=== PATIENT | male | born 1955 | race Caucasian/White ===

== ENCOUNTER 2018-09-26 16:23 | Inpatient (IN) | payer MEDICARE, MEDICAID ==
[~2018-09-26] VITALS: Ht 185.4 cm; Wt 102.1 kg
--- NOTE | ~2018-09-26 | WRIGHTHP ---
[place], [place] PATIENT HISTORY AND PHYSICAL EXAM NAME: PRECIOUS PIERSON UNIT #: [id number] ROOM: 311 DOCTOR: TANIA TELLO MD BIRTHDATE: [birth year] DOS: 09/27/2018 CHIEF COMPLAINT: "You are going to have to check with the attorneys and all that, I don't know what happened." HISTORY OF PRESENT ILLNESS: This is a 63-year-old white male who was sent here to the Behavioral Health Care Unit on an involuntary basis from [facility]. The patient had presented there with EMS and police after he was found wandering, his neighborhood very confused and dazed. He was talking out of his head, stating that a helicopter had come to get him, he was not making much sense. Some of this may be related to a recent medication change in which Trintellix was added to his Zoloft, possibly causing a delirium. On top of that, the patient suffers from early onset dementia and is actively being treated for the Alzheimer disease. He is admitted now to rule out organic factors to attempt to stabilize on medication, to engage in individual and novoa milieu activity and to determine the least restrictive environment to which he can return. PAST MEDICAL HISTORY: Remarkable for vitamin D deficiency, GERD, coronary artery disease, hypertension, hyperlipidemia. MENTAL STATUS: The patient is a cigarette smoker. He does not use illicit drugs or drink alcohol. STRENGTHS: Ambulatory, good verbal skills. WEAKNESSES: Cognitive decline, poor coping skills. MENTAL STATUS: He is alert and oriented to person, place, not time. Mood does seem to be rather depressed and he endorses multiple neurovegetative symptoms. There is no philip or hypomania. There is no gross psychosis now, although he is very confused and disjointed in his thinking. Short term memory continues to be problematic. DIAGNOSES: Major depression, recurrent, severe and acute delirium along with Alzheimer's dementia. PLAN: Niki Alcala, nurse practitioner has already discontinued Trintellix, which I do agree with because of the use of 2 SSRIs can be problematic, given the fact that he is still symptomatic with depression on Zoloft, I will now discontinue it, in lieu of Remeron 15 mg at bedtime. He does endorse poor sleep and appetite and this should help with both of those rapidly. He is maintained on Aricept 10, which I will now augment with Namenda 5 mg a day. Routine screening examinations reveal a vitamin D level that is low at 15.8. So, I will augment with vitamin D 5000 international units daily. We will engage in individual and novoa milieu activities, returning to the least restrictive environment when psychiatrically stable. [place], [place] PATIENT HISTORY AND PHYSICAL EXAM NAME: PRECIOUS PIERSON UNIT #: [id number] ROOM: 311 DOCTOR: TANIA TELLO MD BIRTHDATE: [birth year] TANIA TELLO MD CM:HISPHYS:PATIENT HISTORY AND PHYSICAL EXAMINATION [id number] TANIA TELLO MD 09/27/18 1009 interface
--- NOTE | ~2018-09-26 | DS ---
[place], [place] DISCHARGE SUMMARY NAME: PRECIOUS PIERSON REDWOOD LLCT #: [id number] UNIT #: [id number] ROOM: 311 DOCTOR: TANIA TELLO MD BIRTHDATE: [birth year] DOS: 09/28/2018 CHIEF COMPLAINT: "You are going to have to check with the attorneys and all that, I don't know what happened." HISTORY OF PRESENT ILLNESS: This is a 63-year-old white male sent here from [facility], where he had presented there via EMS and police after he was found wandering in his neighborhood very confused and dazed. He was talking out of his head, stating that a helicopter had come to get him. He was not making much sense. Most recently, he had a medication change where Trintellix was added to his Zoloft, which could be causing the delirium on top of that, he has early onset dementia and has been actively being treated for the Alzheimer dementia. He was admitted now to the [facility] to rule out any organic factors, to stabilize on medication, to engage in individual and novoa milieu activity, returning to the least restrictive environment when psychiatrically stable. SUMMARY OF the HOSPITAL COURSE: The patient was admitted to the unit where immediately his Trintellix was discontinued and he was maintained just on the Zoloft; however, after I had a chance to evaluate him it was obvious that the Zoloft was ineffective as he endorse multiple neurovegetative symptoms including poor sleep and appetite. Zoloft was discontinued in lieu of Remeron 15 mg at bedtime. He was maintained on Aricept 10 mg at bedtime for his Alzheimer dementia and Namenda 5 mg a day was added to augment the effectiveness of the Aricept. Additionally, his vitamin D level was found to be low at 15.8, so vitamin D 5000 International Units daily was added. The patient had a dramatic improvement once the two SSRIs were discontinued. His mental status cleared greatly with the Remeron. He did sleep through the night and woke up and ate a very good breakfast. On the day of discharge, he was very clear, he was able to tell me how long he has been here, what happened, who he sees as an outpatient and there was no gross confusion or psychosis noted. MENTAL STATUS AT DISCHARGE: The patient is alert and oriented to person, place and very approximate to time. Mood does seem to be more euthymic. Affect more appropriate. There is no philip or hypomania. There are no gross psychotic symptoms. No auditory or visual hallucinations are present. No delusions, no paranoia. Short term memory does have some mild gaps, otherwise he is intact. DIAGNOSES: Acute delirium secondary to multiple SSRIs and major depression, recurrent, Alzheimer's dementia. DISPOSITION: The patient is returning home. All of his prescriptions have been printed and will be sent with him. At the time of discharge, there were no acute medical issue and he was psychiatrically stable. [place], [place] DISCHARGE SUMMARY NAME: PRECIOUS PIERSON UNIT #: [id number] ROOM: 311 DOCTOR: TANIA TELLO MD BIRTHDATE: [birth year] TANIA TELLO MD CM:[id number] [id number] TANIA TELLO MD 09/28/18 1202 interface
[2018-09-26] MEDS ORDERED: 'XANAX1 MG PO (16:39)
[2018-09-26] MEDS ORDERED: ATORVASTATIN CA40 M1 PO (16:40)
[2018-09-26] MEDS ORDERED: DONEPEZIL HCL10 MG PO (16:42)
[2018-09-26] MEDS ORDERED: SERTRALINE HYD100 MG PO (16:43)
[2018-09-26] MEDS ORDERED: CYCLOBENZAPRINE10 MG PO (16:43)
[2018-09-26] MEDS ORDERED: OMEPRAZOLE D/R20 MG PO (16:44)
[2018-09-26] MEDS ORDERED: ONDANSETRON HYDR4 M1 PO (16:45)
[2018-09-26] MEDS ORDERED: TRINTELLIX10 MG PO (16:46)
[2018-09-26] MEDS ORDERED: 'CLONIDINE0.1 MG PO (16:47)
[2018-09-26] MEDS ORDERED: ASPIR LOW81 MG PO (16:48)
[2018-09-26] MEDS ORDERED: ATIVAN1 MG PO (17:13)
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
--- NOTE | 2018-09-26 21:10 | NUR ---
DR SAAB CALLED AND PATIENT PLACED UNDER DR. LEMUS FOR MEDICAL MANAGEMENT
--- NOTE | 2018-09-26 21:15 | NUR ---
TOBACCO GROWER UPDATED ABOUT ADMISSION, TIME ON THE FLOOR, PINK SLIP DATE AND TIME. TOBACCO GROWER TO FOLLOW UP WITH PATIENT SOMETIME TOMARROW
[2018-09-26 21:32] VITALS: BP 175/87
--- NOTE | 2018-09-26 23:49 | NUR ---
PATIENT'S SON, JOCELYN CALLED TO CONFIRM THAT PATIENT IS SUPPOSED TO HAVE AN APPOINTMENT WITH [facility] IN [place] ON OCTOBER 05 AT 0830. 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
--- NOTE | 2018-09-27 01:15 | NUR ---
24 HR chart check completed.
--- NOTE | 2018-09-27 05:58 | NUR ---
PATIENT SLEPT >8 HOURS THROUGHOUT SHIFT UNINTERRUPTED. Q 15 MINUTE CHECKS MAINTAINED.
[2018-09-27 07:22] VITALS: BP 134/69
[2018-09-27 07:37] VITALS: BP 134/69
[2018-09-27 08:05] LABS: THYROID STIM HORMONE (HS) 1.2 uIU/ml (0.358-4.75)
--- NOTE | 2018-09-27 08:30 | NUR ---
Treatment Plan meeting with Dr. Gibson RN, AT [facility] [employer]. Plan for discharge at the End of the Week. Pt. to return home. Will reach out to family to discharge discharge Planning and Home needs.
[2018-09-27 08:43] LABS: VITAMIN D, 25-HYDROXY 15.8 ng/mL (30-100)
--- NOTE | 2018-09-27 08:56 | NUR ---
psychosocial hx completed this date, client reports that his son is his POA, but that is not confirmed.
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
--- NOTE | 2018-09-27 11:40 | NUR ---
AM GROUP, GAMES PT CHOSE NOT TO ATTEND MORNING GROUP AND REMAINED IN BED. PT STATES "IM STILL TIRED I MIGHT BE DOWN LATER". PT WILL CONTINUE TO BE ENCOURAGED TO ATTEND AND PARTICIPATE IN FUTURE GROUP SESSIONS.
--- NOTE | 2018-09-27 15:38 | NUR ---
PM GROUP/GAMES PT ATTENDED FIRST FEW MINUTES OF GROUP. PT ENCOURAGED TO JOIN IN ON THE GAME OR TO SIT AND OBSERVE. PT STATES "I HAVE TOO MUCH ON MY MIND TO PLAY A GAME" THIS STAFF EXPLAINS THAT GAMES CAN BE COPING SKILLS TO CALM THOUGHTS. PT CHOSE TO GO BACK TO ROOM AND DID NOT RETURN. THIS STAFF WILL CONTINUE TO ENCOURAGE PT TO ATTEND AND PARTICIPATE IN FUTURE GROUP SESSIONS.
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
[2018-09-27 20:14] VITALS: BP 132/71
--- NOTE | 2018-09-27 23:54 | NUR ---
P-ANXIETY AND CONFUSION. PATIENT WITH FLIGHT OF IDEAS, CONFUSED THOUGHT PROCESS, PREOCCUPIED WITH GOING HOME. PATIENT COMPLAINT OF HAVING ANXIETY AND CAN IS HAVING PROBLEMS RELAXING THIS SHIFT. PATIENT REQUESTING MEDICATIONS AT THIS TIME AND ALSO REQUESTING A SHOWER BEFORE GOING TO BED. I-REDIRECTION WITH 1:1 INTERACTION AND PRESENT REALITY ORIENTATION. EDUCATE AND ENCOURAGE MEDICATION COMPLIANCE. PATIENT TO VERBALIZE TRIGGERS FOR ANXIETY AND DISCUSS COPING SKILLS FOR ANXIETY EPISODES. R-REDIRECTION WITH 1:1 AND PRESENTING REALITY EFFECTIVE AT THIS TIME. PATIENT MEDICATED WITH ATIVAN 1MG PO AT PATIENT REQUEST DUE TO INCREASED ANXIETY, PACING IN THE HALLWAY RAPIDLY, CONSTANT FIDGETING. MEDICATION WITH EFFECTIVE RESULTS. PATIENT SHOWERED AT HS. PATIENT PROVIDED NOURISHMENT, FLUIDS, AND TOILETING. PATIENT MEDICATION COMPLIANT P-CONTINUE TO ENCOURAGE MEDICATION COMPLIANCE, CONTINUE TO PRESENT REALITY ORIENTATION, ENCOURAGE GROUP THERAPY WHILE AWAKE
--- NOTE | 2018-09-28 00:40 | NUR ---
24 HR chart check completed.
--- NOTE | 2018-09-28 06:30 | NUR ---
PATIENT SLEPT >8 HOURS UNINTERRUPTED THROUGHOUT THE SHIFT. Q 15 MINUTE CHECKS MAINTAINED
--- NOTE | 2018-09-28 07:49 | NUR ---
PT AWAKE, ALERT, FED SELF BREAKFAST, WALKING HALLWAY AT THIS TIME.
[2018-09-28 07:51] VITALS: BP 141/87
[2018-09-28] MEDS ORDERED: ARICEPT10 M1 PO (09:41)
[2018-09-28] MEDS ORDERED: VITAMIN D5000 UNI1 PO (09:41)
[2018-09-28] MEDS ORDERED: NAMENDA-5 PO (09:41)
[2018-09-28] MEDS ORDERED: MIRTAZAPINE15 M2 PO (09:41)
--- NOTE | 2018-09-28 09:45 | NUR ---
ON UNIT TO SEE PT AT THIS TIME, UPDATE GIVEN.
--- NOTE | 2018-09-28 09:49 | NUR ---
P- PT IS ALERT AND ORIENTED TO PERSON, PLACE, TIME AND SITUATION. RESPS EASY AND EVEN ON ROOM AIR. MOOD IS STABLE THIS AM, AFFECT IS BLUNTED. SPEECH IS WNL AND COHERENT, ABLE TO MAKE NEEDS KNOWN WITHOUT DIFFICULTY. I- ORIENTATION, MOOD AND BEHAVIOR ASSESSED. PT ASSESSED FOR SI/HI AND EVIDENCE OF HALLUCINATIONS. MEDICATIONS ADMINISTERED PER PHYSICIAN'S ORDERS. MEDICATION EDUCATION PROVIDED. 1:1 WITH PT, ALLOWED PT TIME TO EXPRESS FEELINGS. ENCOURAGED PT TO ATTEND AND PARTICIPATE IN GROUPS AND ACTIVITIES. R- PT READILY ENGAGED IN CONVERSATION WITH THIS NURSE, PT DENIES SI/HI, INTENT OR PLAN. PT STATES "IT'S NO SECRET THAT I GET MORE DEPRESSED DURING THE WINTER MONTHS BECAUSE THE DAYS ARE SO SHORT, BUT TODAY IS SEPTEMBER 28 AND ON OCTOBER 18 THE DAYS START GETTING LONGER AND LONGER, SO THAT'S SOMETHING TO LOOK FORWARD TO". PT IS MEDICATION COMPLIANT WITHOUT DIFFICULTY, RECEPTIVE TO MED EDUCATION, VERBALIZED UNDERSTANDING OF MEDICATIONS AND IMPORTANCE OF COMPLIANCE. P- CONTINUE CURRENT TREATMENT, CONTINUE TO MONITOR MOOD AND BEHAVIORS, PROVIDE REDIRECTION, 1:1 AND REORIENTATION NEEDED. CONTINUE TO ENCOURAGE PT TO ATTEND AND PARTICIPATE IN [facility] GROUPS AND ACTIVITIES.
--- NOTE | 2018-09-28 10:20 | NUR ---
MESSAGE LEFT FOR PT'S SON TO ARRANGE TRANSPORTATION FOR DISCHARGE. AWAITING RETURN CALL.
--- NOTE | 2018-09-28 10:27 | NUR ---
RECIEVED RETURN CALL FROM PT'S SON JOCELYN, HE CAN PICK PT UP AROUND 1PM FOR DISCHARGE TO HOME.
--- NOTE | 2018-09-28 11:08 | NUR ---
CALL PLACED TO [phone] FOR , SPOKE TO , MADE AWARE OF DISCHARGE FOR TODAY AND SON WILL HEAD OF ENGLISH AT 1PM. ALSO MADE AWARE PT REQUESTS SCRIPT FOR NICOTINE PATCH.
--- NOTE | 2018-09-28 11:11 | NUR ---
PHYSICAL THERAPY Staffing reports patient being discharged. Thank you for this referral. Ana Yañez ,PT
--- NOTE | 2018-09-28 11:11 | NUR ---
Nursing staff report that patient is being discharged today. Marge Chaparro OTR/l
--- NOTE | 2018-09-28 11:36 | NUR ---
AM GROUP THERAPY PT PARTICIPATED IN 1:1 ASSESSMENT BUT CHOSE NOT TO ATTEND GROUP THERAPY. PT RETURNED TO ROOM. PT WILL BE DISCHARGED FROM THE UNIT TODAY.
--- NOTE | 2018-09-28 11:50 | NUR ---
AND ON UNIT TO SEE PT AT THIS TIME.
[2018-09-28] MEDS ORDERED: NICODERM T (12:39)
--- NOTE | 2018-09-28 13:36 | NUR ---
PT DISCHARGED TO HOME AT THIS TIME IN CARE OF SONJOCELYN VIA SON'S PRIVATE VEHICLE. ALL DISCHARGE INSTRUCTIONS WERE REVIEWED WITH THE PT PRIOR TO DISCHARGE WITH PT'S STATED UNDERSTANDING OF ALL. ALL SCRIPTS WERE SENT WITH PT INCLUDING SCRIPT FOR NICOTINE PATCH. ALL PERSONAL BELONGINGS WERE SENT WITH THE PT. PT LEFT THE UNIT IN STABLE CONDITION AT 1336 ESCORTED TO MAIN ENTRANCE VIA WHEELCHAIR BY THIS NURSE.
== END 2018-09-28 13:36 | disposition home or self-care (01) | DRG 57 ==
LOC: 3N 16:23
PROVIDERS: ADMIT Psychiatry & Neurology Psychiatry
DX: G30.9 Alzheimer's disease, unspecified (principal); F33.9 Major depressive disorder, recurrent, unspecified; F19.921 Other psychoactive substance use, unspecified with intoxication with delirium; F02.80 Dementia in other diseases classified elsewhere, unspecified severity, without behavioral disturbance, psychotic disturbance, mood disturbance, and anxiety; K21.9 Gastro-esophageal reflux disease without esophagitis; I25.10 Atherosclerotic heart disease of native coronary artery without angina pectoris; I10 Essential (primary) hypertension; E78.5 Hyperlipidemia, unspecified; F17.210 Nicotine dependence, cigarettes, uncomplicated; R73.03 Prediabetes; E55.9 Vitamin D deficiency, unspecified; F17.200 Nicotine dependence, unspecified, uncomplicated; Z71.6 Tobacco abuse counseling